=== PATIENT | male | born 1980 | race Hispanic/Latino ===

== ENCOUNTER 2021-07-11 07:17 | Day surgery (SDC) | payer OTHER ==
[2021-07-11] MEDS ORDERED: ASPIRIN EC 325 MG TAB PO ONE (08:37)
[2021-07-11 08:57] LABS: Basophils % (Auto) 0.6 % (0.0-1.8); Eosinophils # (Auto) 0.3 K/mm3 (0.0-0.4); Eosinophils % (Auto) 5.1 % (0.0-4.3); Hematocrit 40.5 % (35.5-45.6); Hemoglobin 13.3 gm/dl (11.8-15.2); Lymphocytes # (Auto) 1.4 K/mm3 (1.2-5.4); Lymphocytes % (Auto) 24.3 % (13.4-35.0); Mean Corpuscular HGB Conc 33 % (32-34); Mean Corpuscular Volume 86 fl (84-94); Monocytes # (Auto) 0.5 K/mm3 (0.0-0.8); Monocytes % (Auto) 7.8 % (0.0-7.3); Platelet Count 203 K/mm3 (140-440); Red Blood Count 4.72 M/mm3 (3.65-5.03); Red Cell Distribution Width 14.8 % (13.2-15.2)
[2021-07-11] MEDS ORDERED: SODIUM CHLORIDE 0.9% 500 ML 500 ML IV SCH (09:00)
[2021-07-11 09:08] LABS: BUN/Creatinine Ratio 20; Blood Urea Nitrogen 26 mg/dL (9-20); Calcium 9.5 mg/dL (8.4-10.2); Hemolysis Index 6
[2021-07-11 09:18] LABS: INR 0.9 (0.87-1.13)
[2021-07-11] MEDS ORDERED: HEPARIN/NS 5000 UNIT/500ML 1,000 ML IR ONE (10:02)
[2021-07-11] MEDS ORDERED: VERAPAMIL 5 MG/2 ML INJ ONE (10:03)
[2021-07-11] MEDS ORDERED: HEPARIN 10,000 UNITS/10 ML VIAL ONE (10:03)
[2021-07-11] MEDS ORDERED: fentaNYL 100 MCG/2 ML INJ ONE (10:04)
[2021-07-11] MEDS ORDERED: MIDAZOLAM 2 MG/2 ML INJ ONE (10:04)
--- NOTE | 2021-07-11 10:28 | Electrocardiograph Report ---
[facility] Test Date: 2021-07-11 Test Time: 07:56:26 Pat Name: ERICK DAMON Department: Room: Gender: M Registered Travel Nurse: CONCHIS : 1980 Requested By: VIKTOR LORA Order Number: [id number] Reading MD: Viktor Lora Measurements Intervals [place] Rate: 62 P: 29 UT: 147 QRS: 16 QRSD: 111 T: 86 QT: 417 QTc: 423 Interpretive Statements Sinus arrhythmia No previous ECG available for comparison Electronically Signed On 07-11-2021 10:28:08 EST by Viktor Lora
[2021-07-11] MEDS: LIDOCAINE (2%) 20 MG/1 ML VIAL 20 ML MDV INFILTRATI ONE ×2 (10:31→10:36)
--- NOTE | 2021-07-11 11:38 | Cardiac Catherization Report ---
DATE OF SERVICE: 07/11/2021 PROCEDURE: Left heart catheterization. CLINICAL INFORMATION: The patient is a 41-year-old male with obesity, abnormal treadmill stress test here for left heart catheterization for definitive diagnosis. Sedation started 10:31 finished at 10:46. There is 15 minutes of moderate sedation noted. DESCRIPTION OF PROCEDURE: Left heart catheterization done via the right radial artery, sterile technique and local anesthesia. A 6-Libyan radial sheath inserted. Left system engaged with JL3.5 catheter. Left main is large and patent, trifurcates into large LAD proximally. Then, the large diagonal was patent. LAD becomes a small to medium caliber vessel, is patent. Ramus is a medium to large caliber vessel, patent. Circumflex is a large caliber was patent, goes into a large OM1 that is patent. RCA engaged with JR4 is a large, dominant vessel, proximally and distally patent. PDA, PLV are medium caliber and patent. LV gram done in [place]ORE[place] and PETERS view shows normal LV function, LVEDP of 11 mmHg, LV is 123, aortic is 123/77. No gradient across the aortic valve on pullback. 5-Libyan catheters all taken over guidewire. A 6-Libyan radial sheath was discontinued. Radial band applied. No hematoma, no bleeding. SUMMARY: Left normal coronaries. Left main patent. LAD patent. Ramus patent. Circ patent. RCA dominant, patent. Continue risk factor modification. Discussed with the patient and family in detail. TID: [id number] RECEIPT: [id number] MAGO/OXANA
--- NOTE | 2021-07-11 12:26 | Short Stay Summary ---
Short Stay Documentation Date of service: 07/11/21 - History H&P: obtained from office - Allergies and Medications Current Medications: Allergies No Known Allergies Allergy (Unverified 07/11/21 08:36) Home Medications Medication Instructions Recorded Confirmed Last Taken Type NIFEdipine XL [Procardia Xl] 1 tab PO DAILY 07/11/21 07/11/21 07/10/21 09:00 History 1 TAB Valsartan [Diovan] 160 mg PO QDAY 07/11/21 07/11/21 07/10/21 09:00 History 1 TAB allopurinoL [Zyloprim] 100 mg PO DAILY 07/11/21 07/11/21 07/10/21 09:00 History 1 tablet hydroCHLOROthiazide 12.5 mg PO DAILY 07/11/21 07/11/21 07/10/21 09:00 History [Hydrochlorothiazide] 1 Tablet Active Medications Sodium Chloride (Nacl 0.9% 500 Ml) 500 mls @ 50 mls/hr IV DIRECT HERMES Stop: 07/11/21 18:59 Last Admin: 07/11/21 09:11 Dose: 50 mls/hr - Physical exam Integumentary: other (Dressing clean dry and intact. No signs of bleeding or hematoma) - Brief post op/procedure progress note Date of procedure: 07/11/21 Pre-op diagnosis: Abnormal stress test Post-op diagnosis: other (Normal coronary) Anesthesia: local Estimated blood loss: minimal - Disposition Condition at discharge: Good Disposition: 01 HOME / SELF CARE / HOMELESS - Discharge Diagnoses (1) HTN (hypertension) Status: Acute (2) LVH (left ventricular hypertrophy) Status: Acute Short Stay Discharge Plan Activity: advance as tolerated Diet: low fat, low cholesterol Wound: keep clean and dry, per your surgeon's advice Follow up with: CAMILLA HENSON MD [Primary Care Provider] - 7 Days GALLO WEISS MD [Staff Physician] - 7 Days
[2021-07-11 13:34] VITALS: BP 135/78
== END 2021-07-11 14:10 | disposition home or self-care (01) ==
LOC: CATHLABREC 07:17
PROVIDERS: ATTEND Internal Medicine
DX: R94.39 Abnormal result of other cardiovascular function study (principal); E66.9 Obesity, unspecified; R07.2 Precordial pain; I10 Essential (primary) hypertension; E03.9 Hypothyroidism, unspecified; Z79.899 Other long term (current) drug therapy
CPT/HCPCS: 36415; 80048; 85025; 85610; 93005; 93010; 93458; 99156; C1894; J1644; J2250; J3010; J3490; J7040; Q9967